=== PATIENT | female | born 1995 | race Caucasian/White ===

== ENCOUNTER 2017-09-19 13:29 | Emergency (ER) | payer MEDICAID ==
[2017-09-19] MEDS ORDERED: oxyCOD/ACETAMIN 5 MG/325 MG TABLET PO STA (16:23)
[2017-09-19] MEDS ORDERED: LIDOCAINE PATCH 5% TOP STA (16:23)
[2017-09-19] MEDS ORDERED: oxyCOD/ACETAMIN 5 MG/325 MG TABLET PO ONE (16:33)
[2017-09-19] MEDS ORDERED: LIDOCAINE PATCH 5% TOP ONE (16:33)
--- NOTE | 2017-09-19 17:10 | ED Physician Documentation ---
History of Present Illness - Stated complaint Stated Complaint: BACK PX - Chief complaint Chief Complaint: General - Additonal information Additional information: hx from pt 22 y/o f denies preg pt was sick and coughing very hard developed severe R posterior chest pain worse with moving palp and breathing no rash no abd pain no flank pain no urinary sx no leg pain or swelling, no travel motrin s relief Review of Systems Constitutional: denies: Fever Cardiac: reports: Chest pain / pressure Respiratory: reports: Dyspnea, Cough GI: denies: Abdominal Pain : denies: Now EGA Musculoskeletal: reports: Back pain Endocrine: denies: Easy bruising / bleeding Immunocompromised: denies: Immunocompromised PD PAST MEDICAL HISTORY - Past Medical History Past Medical History: Yes Psych: Depression, Anxiety, Other - Past Surgical History Past Surgical History: No - Present Medications Home Medications: Ambulatory Orders Medication Instructions Recorded Confirmed FLUoxetine [PROzac] 10 mg PO DAILY 08/15/13 11/12/16 ARIPiprazole [Abilify] 10 mg PO DAILY 09/19/17 09/19/17 Ibuprofen [Motrin] 400 mg PO Q6H PRN #20 tablet 09/19/17 Lidocaine Patch 5% [Lidoderm Patch] 1 each TOP DAILY PRN #10 patch 09/19/17 guaiFENesin/CODEINE [Robitussin AC] 5 - 10 ml PO Q6H PRN #120 udc 09/19/17 - Allergies Allergies/Adverse Reactions: Allergies Allergy/AdvReac Type Severity Reaction Status Date / Time Penicillins Allergy Rash Verified 09/19/17 13:42 - Social History Does the pt smoke?: Yes Smoking Status: Current every day smoker Does the pt drink ETOH?: Yes Does the pt have substance abuse?: No - Immunizations Immunizations are current?: Yes - POLST Patient has POLST: No PD ED PE NORMAL - Vitals Vital signs reviewed: Yes - General General: Alert and oriented X 3 - Neck Neck: Supple, no meningeal sign - Cardiac Cardiac: RRR - Respiratory Respiratory: No respiratory distress, Clear bilaterally, Other (limited 2/2 pain but puma BS, no rash, no crepitus) - Abdomen Abdomen: Soft, Non tender - Derm Derm: Normal color - Extremities Extremities: No deformity, No edema, No calf tenderness / cord - Neuro Neuro: Alert and oriented X 3, No motor deficit, No sensory deficit Results - Vitals Vitals: Vital Signs - 24 hr 09/19/17 13:38 Temperature 36.2 C L Heart Rate 84 Respiratory 16 Rate Blood Pressure 119/72 O2 Saturation 100 Oxygen O2 Source Room air - Rads (name of study) CXR Radiology: See rad report (neg) PD MEDICAL DECISION MAKING - ED course ED course: PERC neg CXR neg likely pleurisy from recent URI will dc Departure - Departure Disposition: 01 Home, Self Care Clinical Impression: Pleurisy Condition: Good Instructions: ED Chest Pain Pleurisy Prescriptions: guaiFENesin/CODEINE [Robitussin AC] 5 - 10 ml PO Q6H PRN #120 udc PRN Reason: Cough Ibuprofen [Motrin] 400 mg PO Q6H PRN #20 tablet PRN Reason: Pain Lidocaine Patch 5% [Lidoderm Patch] 1 each TOP DAILY PRN #10 patch PRN Reason: Pain Comments: The xray was fine - no collapsed lung or pneumonia. Your exam and history do not suggest a blood clot in your lung You likely have pleurisy which is inflammation of your lungs due to your recent respiratory infection I have prescribed medications to ease your symptoms Please follow up with your PMD for a recheck later this week Return if worse Forms: Activity restrictions
--- NOTE | 2017-09-19 17:13 | XRAY Preliminary Report ---
Exam: XR CHEST 2 VIEW PA/LAT IMPRESSION: No acute intrathoracic plain film abnormality. [facility] SITE ID: [id number]
--- NOTE | 2017-09-19 17:16 | XRAY Report ---
EXAM: CHEST RADIOGRAPHY EXAM DATE: 09/19/2017 04:46 PM. CLINICAL HISTORY: Pleuritic chest pain. COMPARISON: None. TECHNIQUE: 2 views. FINDINGS: Lungs/Pleura: No focal opacities evident. No pleural effusion. No pneumothorax. Normal volumes. Mediastinum: Heart and mediastinal contours are unremarkable. Other: None. IMPRESSION: No acute intrathoracic plain film abnormality. [facility] Referring Provider Line: [phone] SITE ID: [id number]
[2017-09-19 17:30] VITALS: BP 117/81
== END 2017-09-19 17:58 | disposition home or self-care (01) ==
LOC: ED 13:29
DX: R09.1 Pleurisy (principal); F17.200 Nicotine dependence, unspecified, uncomplicated
CPT/HCPCS: 71020; 99283; A9270

== ENCOUNTER 2017-10-30 12:42 | Outpatient (CLI) | payer MEDICAID | END 2017-10-30 12:43 | disposition critical access hospital (66) | LOC: EMS 12:42 | PROVIDERS: ATTEND Surgery | DX: R11.2 Nausea with vomiting, unspecified (principal) | CPT/HCPCS: A0425; A0429 ==

== ENCOUNTER 2017-10-30 13:07 | Emergency (ER) | payer MEDICAID ==
[2017-10-30] MEDS ORDERED: SODIUM CHLORIDE 0.9% 1,000 ML IV ONE (13:08)
[2017-10-30] MEDS ORDERED: PANTOPRAZOLE 40 MG VIAL IVP STA (13:08)
[2017-10-30] MEDS ORDERED: ONDANSETRON 4 MG/2 ML VIAL IVP STA (13:08)
--- NOTE | 2017-10-30 13:11 | ED Physician Documentation ---
PD HPI ABD PAIN - Stated complaint Stated Complaint: N/V/ANXIETY - Chief complaint Chief Complaint: Abd Pain - History obtained from History obtained from: Patient - History of Present Illness Timing - onset: Other (Boyfriend cheated on her 5 days ago. At that time she started to lose her appetite and she really was not eating for a couple of days , only drinking Dr. Pepper. She regained her appetite 3 days ago, but since then every time she eats she vomits. There is some epigastric burning with this and also a headache. She has been unable to keep down her medications including fluoxetine and aripiprazole.) Review of Systems Constitutional: reports: Fatigue. denies: Fever, Chills Nose: denies: Rhinorrhea / runny nose, Congestion Cardiac: denies: Chest pain / pressure, Palpitations Respiratory: denies: Dyspnea GI: reports: Nausea, Vomiting, Diarrhea (Yesterday, gone). denies: Hematemesis , Bloody / black stool PD PAST MEDICAL HISTORY - Past Medical History Psych: Depression, Anxiety, Other - Past Surgical History Past Surgical History: No - Present Medications Home Medications: Ambulatory Orders Medication Instructions Recorded Confirmed FLUoxetine [PROzac] 10 mg PO DAILY 08/15/13 10/30/17 ARIPiprazole [Abilify] 10 mg PO DAILY 09/19/17 10/30/17 Famotidine [Pepcid] 20 mg PO BID #10 tablet 10/30/17 Lorazepam [Ativan] 1 mg PO TID PRN #10 tablet 10/30/17 Omeprazole [PriLOSEC] 20 mg PO DAILY #14 capsule 10/30/17 Ondansetron HCl [Zofran] 4 mg PO Q6H PRN #10 tablet 10/30/17 - Allergies Allergies/Adverse Reactions: Allergies Allergy/AdvReac Type Severity Reaction Status Date / Time Penicillins Allergy Rash Verified 10/30/17 13:06 - Social History Does the pt smoke?: Yes Smoking Status: Current every day smoker Does the pt drink ETOH?: Yes Does the pt have substance abuse?: No - Immunizations Immunizations are current?: Yes - POLST Patient has POLST: No PD ED PE NORMAL - Vitals Vital signs reviewed: Yes - General General: Alert and oriented X 3, No acute distress - Neck Neck: Supple, no meningeal sign, No bony TTP - Cardiac Cardiac: RRR, No murmur - Respiratory Respiratory: No respiratory distress, Clear bilaterally - Abdomen Abdomen: Normal bowel sounds, Soft, Non tender - Neuro Neuro: Alert and oriented X 3, Normal speech - Psych Psych: Normal mood, Normal affect Results - Vitals Vitals: Vital Signs - 24 hr 10/30/17 10/30/17 13:03 14:25 Temperature 36.8 C 36.9 C Heart Rate 80 65 Respiratory 15 15 Rate Blood Pressure 127/85 H 137/84 H O2 Saturation 98 100 Oxygen O2 Source Room air - Labs Labs: Laboratory Tests 10/30/17 10/30/17 13:25 13:25 Sodium 138 Potassium 3.7 Chloride 103 Carbon Dioxide 22 Anion Gap 13.0 BUN 6 Creatinine 0.7 Estimated GFR (MDRD) 104 Glucose 97 Calcium 9.5 Total Bilirubin 0.3 AST 18 ALT 18 Alkaline Phosphatase 99 Total Protein 7.4 Albumin 3.7 Globulin 3.7 Albumin/Globulin Ratio 1.0 Lipase 21 L Serum HCG, Qual NEGATIVE H. pylori IgG Antibody Negative PD MEDICAL DECISION MAKING - ED course ED course: She has what seems to be most likely anxiety related nausea and vomiting. Could also be an episode of gastritis, less likely would be enteritis. She is feeling much better after Zofran and a GI cocktail and some IV Protonix. Still anxious so this was followed by IV Ativan and passed an oral challenge. Remains nontender on reevaluation prior to discharge. Departure - Departure Disposition: 01 Home, Self Care Clinical Impression: Gastritis Qualifiers: Gastritis type: superficial Chronicity: acute Gastritis bleeding: without bleeding Qualified Code(s): K29.00 - Acute gastritis without bleeding Condition: Good Record reviewed to determine appropriate education?: Yes Instructions: ED Gastritis Prescriptions: Famotidine [Pepcid] 20 mg PO BID #10 tablet Lorazepam [Ativan] 1 mg PO TID PRN #10 tablet PRN Reason: Anxiety Omeprazole [PriLOSEC] 20 mg PO DAILY #14 capsule Ondansetron HCl [Zofran] 4 mg PO Q6H PRN #10 tablet PRN Reason: Nausea / Vomiting Comments: Call your doctor to arrange a follow-up appointment, make the next available appointment. In the interim, return anytime if worse or if new symptoms develop. Your blood pressure was elevated today on check into the emergency department. This does not mean that you have hypertension, it is a common phenomenon to come to the emergency department and have elevated blood pressure. I recommend that you see your primary care physician within the week to have it rechecked when you are feeling better.
[2017-10-30] MEDS ORDERED: ONDANSETRON 4 MG/2 ML VIAL ONE (13:19)
[2017-10-30] MEDS ORDERED: PANTOPRAZOLE 40 MG VIAL ONE (13:19)
[2017-10-30 13:58] LABS: H. PYLORI IGG ANTIBODY Negative (Negative); HPYLORI NEG QC Negative (Negative); HPYLORI POS QC POSITIVE (Positive)
[2017-10-30 14:09] LABS: BILIRUBIN,TOTAL 0.3 mg/dL (0.2-1.0); BUN - BLOOD UREA NITROGEN 6 mg/dL (6-20); CALCIUM 9.5 mg/dL (8.5-10.3); CARBON DIOXIDE - CO2 22 mmol/L (21-32); CHLORIDE 103 mmol/L (101-111); CREATININE 0.7 mg/dL (0.4-1.0); GFR - MDRD 104 (>89); GLUCOSE 97 mg/dL (70-100); LIPASE 21 U/L (22-51); POTASSIUM 3.7 mmol/L (3.5-5.0); SODIUM 138 mmol/L (135-145); TOTAL PROTEIN 7.4 g/dL (6.7-8.2)
[2017-10-30] MEDS ORDERED: MAG HYDROX/AL HYDROX/SIMETH 30 ML UDC PO STA (14:13)
[2017-10-30] MEDS ORDERED: LIDOCAINE VISCOUS 2% 15 ML UDC MM STA (14:13)
[2017-10-30] MEDS ORDERED: LIDOCAINE VISCOUS 2% 15 ML UDC MM ONE (14:26)
[2017-10-30] MEDS ORDERED: MAG HYDROX/AL HYDROX/SIMETH 30 ML UDC ONE (14:26)
[2017-10-30] MEDS ORDERED: LORazepam 2 MG/ML VIAL IVP STA (14:45)
[2017-10-30 15:08] VITALS: BP 141/77
[2017-10-30] MEDS ORDERED: LORazepam 2 MG/ML VIAL ONE (15:15)
== END 2017-10-30 15:29 | disposition home or self-care (01) ==
LOC: ED 13:07
DX: K29.00 Acute gastritis without bleeding (principal); R03.0 Elevated blood-pressure reading, without diagnosis of hypertension; F17.200 Nicotine dependence, unspecified, uncomplicated
CPT/HCPCS: 36415; 80053; 83690; 84703; 87339; 96361; 96374; 96375; 99283; 99284; A9270; J2060

== ENCOUNTER 2017-11-17 21:18 | Emergency (ER) | payer MEDICAID ==
[2017-11-17 21:38] LABS: MUDS CUTOFF CONCENTRATIONS CUTOFF CONC BELOW:
[2017-11-17 21:47] LABS: BILIRUBIN,URINE NEGATIVE (NEGATIVE); GLUCOSE, URINE (UA) NEGATIVE (NEGATIVE); KETONES,URINE (UA) NEGATIVE (NEGATIVE); LEUKOCYTE ESTERASE, URINE NEGATIVE (NEGATIVE); NITRITE,URINE NEGATIVE (NEGATIVE); OCCULT BLOOD,URINE NEGATIVE (NEGATIVE); PROTEIN,URINE NEGATIVE (NEGATIVE); UROBILINOGEN,URINE 0.2 (NORMAL) E.U./dL (NORMAL)
[2017-11-17 21:51] LABS: CLARITY,URINE CLEAR (CLEAR); HCG UR QUAL NEGATIVE
[2017-11-17 21:52] LABS: AMPHETAMINE SCREEN,URINE NEGATIVE (NEGATIVE); BENZODIAZEPINES SCREEN, URINE NEGATIVE (NEGATIVE); COCAINE SCREEN URINE NEGATIVE (NEGATIVE); METHADONE SCREEN, URINE NEGATIVE (NEGATIVE); METHAMPHETAMINES SCREEN, URINE NEGATIVE (NEGATIVE); OPIATE SCREEN, URINE NEGATIVE (NEGATIVE); OXYCODONE SCREEN, URINE NEGATIVE (NEGATIVE); PROPOXYPHENE SCREEN, URINE NEGATIVE (NEGATIVE); TRICYCLIC ANTIDEPRESSANT,URINE NEGATIVE (NEGATIVE)
[2017-11-17 21:56] LABS: BASOPHILS # (AUTO) 0.1 10^3/uL (0.0-0.1); BASOPHILS % (AUTO) 0.4 %; EOSINOPHILS % (AUTO) 0.1 %; HGB - HEMOGLOBIN 12.6 g/dL (12.0-16.0); LYMPHOCYTES % (AUTO) 23.8 %; MEAN CORPUSCULAR HEMOGLOBIN 29.6 pg (27.0-31.0); MEAN CORPUSCULAR HGB CONC 33.2 g/dL (32.0-36.0); MEAN CORPUSCULAR VOLUME 89.2 fL (81.0-99.0); MEAN PLATELET VOLUME 7.2 fL (7.9-10.8); MONOCYTES # (AUTO) 0.9 10^3/uL (0.0-1.0); MONOCYTES % (AUTO) 6.7 %; NEUTROPHILS # (AUTO) 8.8 10^3/uL (1.5-6.6); PLT - PLATELET COUNT 288 10^3/uL (130-450); RED BLOOD COUNT 4.24 10^6/uL (4.20-5.40); RED CELL DISTRIBUTION WIDTH 13.4 % (12.0-15.0); WHITE BLOOD COUNT 12.7 x10^3/uL (4.8-10.8)
[2017-11-17 22:09] LABS: ALBUMIN 3.9 g/dL (3.2-5.5); ALKALINE PHOSPHATASE 94 IU/L (42-121); ALT ALANINE AMINOTRANSFERASE 19 IU/L (10-60); AST ASPARTATE AMINOTRANSFERASE 25 IU/L (10-42); BILIRUBIN,TOTAL 0.4 mg/dL (0.2-1.0); BUN - BLOOD UREA NITROGEN 5 mg/dL (6-20); CALCIUM 9.3 mg/dL (8.5-10.3); CARBON DIOXIDE - CO2 25 mmol/L (21-32); CHLORIDE 98 mmol/L (101-111); CREATININE 0.7 mg/dL (0.4-1.0); GFR - MDRD 104 (>89); GLUCOSE 112 mg/dL (70-100); LIPASE 17 U/L (22-51); SALICYLATE < 6.0 mg/dL; SODIUM 135 mmol/L (135-145); TOTAL PROTEIN 7.8 g/dL (6.7-8.2)
[2017-11-17 22:30] LABS: ACETAMINOPHEN < 10 ug/mL (10-30)
--- NOTE | 2017-11-17 22:38 | ED Physician Documentation ---
PD HPI MHE - Stated complaint Stated Complaint: MHE - Chief complaint Chief Complaint: MHE - History obtained from History obtained from: Patient, Family - History of Present Illness Primary symptom: Suicidal ideation Timing - onset: Today Contributing factors: Sig other, Off meds Similar symptoms before: Work up / diagnostics, Treatment Recently seen: Not recently seen - Additional information Additional information: Patient is a 22 year old female with a history of anxiety, depression and schizoaffective disorder who is presenting to the emergency department for suicidal ideation. Patient states that she and her boyfriend have broken up about a week ago. patient came to the emergency department at that time for gastritis. patient states that tonight it just got to be too much and she was going to drive [place]. Patient states that she has not been taking her medications for about a month. Review of Systems Constitutional: denies: Fever, Chills Eyes: reports: Reviewed and negative Ears: reports: Reviewed and negative Nose: reports: Reviewed and negative Throat: reports: Reviewed and negative Cardiac: denies: Chest pain / pressure, Palpitations Respiratory: denies: Dyspnea, Cough, Wheezing GI: denies: Nausea, Vomiting : reports: Reviewed and negative Skin: denies: Laceration (s) Musculoskeletal: reports: Reviewed and negative Neurologic: reports: Reviewed and negative Psychiatric: reports: Depressed, Suicidal, Anxiety. denies: Homicidal, Hallucinations, Delusions PD PAST MEDICAL HISTORY - Past Medical History Past Medical History: Yes Psych: Depression, Anxiety, Other Other Past Medical History: Schizoaffective - Past Surgical History Past Surgical History: No - Allergies Allergies/Adverse Reactions: Allergies Allergy/AdvReac Type Severity Reaction Status Date / Time Penicillins Allergy Rash Verified 10/30/17 13:06 - Social History Does the pt smoke?: Yes Smoking Status: Current every day smoker Does the pt drink ETOH?: Yes Does the pt have substance abuse?: No - Immunizations Immunizations are current?: Yes - POLST Patient has POLST: No PD ED PE NORMAL - Vitals Vital signs reviewed: Yes - General General: Alert and oriented X 3 - HEENT HEENT: Atraumatic, Moist mucous membranes, Dentition benign - Neck Neck: Supple, no meningeal sign - Cardiac Cardiac: RRR, No murmur - Respiratory Respiratory: No respiratory distress - Abdomen Abdomen: Non distended - Derm Derm: Normal color, Warm and dry - Extremities Extremities: No deformity - Neuro Neuro: Alert and oriented X 3, No motor deficit, No sensory deficit, Normal speech Eye Opening: Spontaneous Motor: Obeys Commands Verbal: Oriented GCS Score: 15 PD ED PE EXPANDED - Psych Psych: Depressed, Suicidal, Tearful Results - Vitals Vitals: Vital Signs - 24 hr 11/17/17 21:22 Temperature 36.7 C Heart Rate 84 Respiratory 18 Rate Blood Pressure 128/78 O2 Saturation 100 Oxygen O2 Source Room air - Labs Labs: Laboratory Tests 11/17/17 11/17/17 11/17/17 21:35 21:35 21:48 WBC 12.7 H RBC 4.24 Hgb 12.6 Hct 37.8 MCV 89.2 MCH 29.6 MCHC 33.2 RDW 13.4 Plt Count 288 MPV 7.2 L Neut # 8.8 H Lymph # 3.0 [place] # 0.9 Eos # 0.0 Baso # 0.1 Absolute Nucleated RBC 0.00 Nucleated RBC % 0.0 Sodium Potassium Chloride Carbon Dioxide Anion Gap BUN Creatinine Estimated GFR (MDRD) Glucose Calcium Total Bilirubin AST ALT Alkaline Phosphatase Total Protein Albumin Globulin Albumin/Globulin Ratio Lipase TSH Urine Color YELLOW Urine Clarity CLEAR Urine pH 6.0 Ur Specific [place] 1.020 Urine Protein NEGATIVE Urine Glucose (UA) NEGATIVE Urine Ketones NEGATIVE Urine Occult Blood NEGATIVE Urine Nitrite NEGATIVE Urine Bilirubin NEGATIVE Urine Urobilinogen 0.2 (NORMAL) Ur Leukocyte Esterase NEGATIVE Ur Microscopic Review NOT INDICATED Urine Culture Comments NOT INDICATED Urine HCG, Qual NEGATIVE Salicylates Urine Opiates Screen NEGATIVE Ur Oxycodone Screen NEGATIVE Urine Methadone Screen NEGATIVE Ur Propoxyphene Screen NEGATIVE Acetaminophen Ur Barbiturates Screen NEGATIVE Ur Tricyclics Screen NEGATIVE Ur Phencyclidine Scrn NEGATIVE Ur Amphetamine Screen NEGATIVE U Methamphetamines Scrn NEGATIVE U Benzodiazepines Scrn NEGATIVE Urine Cocaine Screen NEGATIVE U Cannabinoids Screen POSITIVE H Ethyl Alcohol 11/17/17 11/17/17 21:48 21:48 WBC RBC Hgb Hct MCV MCH MCHC RDW Plt Count MPV Neut # Lymph # [place] # Eos # Baso # Absolute Nucleated RBC Nucleated RBC % Sodium 135 Potassium 3.2 L Chloride 98 L Carbon Dioxide 25 Anion Gap 12.0 BUN 5 L Creatinine 0.7 Estimated GFR (MDRD) 104 Glucose 112 H Calcium 9.3 Total Bilirubin 0.4 AST 25 ALT 19 Alkaline Phosphatase 94 Total Protein 7.8 Albumin 3.9 Globulin 3.9 Albumin/Globulin Ratio 1.0 Lipase 17 L TSH 5.40 Urine Color Urine Clarity Urine pH Ur Specific [place] Urine Protein Urine Glucose (UA) Urine Ketones Urine Occult Blood Urine Nitrite Urine Bilirubin Urine Urobilinogen Ur Leukocyte Esterase Ur Microscopic Review Urine Culture Comments Urine HCG, Qual Salicylates < 6.0 Urine Opiates Screen Ur Oxycodone Screen Urine Methadone Screen Ur Propoxyphene Screen Acetaminophen < 10 L Ur Barbiturates Screen Ur Tricyclics Screen Ur Phencyclidine Scrn Ur Amphetamine Screen U Methamphetamines Scrn U Benzodiazepines Scrn Urine Cocaine Screen U Cannabinoids Screen Ethyl Alcohol < 5.0 PD MEDICAL DECISION MAKING - ED course Complexity details: reviewed old records, reviewed results, re-evaluated patient , considered differential, d/w patient ED course: Patient was seen and examined at bedside. Patient was tearful but awake, alert and oriented. patient's labs were drawn and urine was collected. Patient was treated with pepcid, maalox and ativan. Patient was medically clear but voluntary so patient was signed over to the day team pending social work evaluation.
[2017-11-17] MEDS ORDERED: POTASSIUM CHLORIDE 20 MEQ TABLET PO STA (22:39)
[2017-11-17] MEDS ORDERED: FAMOTIDINE 20 MG TABLET PO STA (22:43)
[2017-11-17] MEDS ORDERED: LORazepam 0.5 MG TABLET PO STA (22:43)
[2017-11-17] MEDS ORDERED: MAG HYDROX/AL HYDROX/SIMETH 30 ML UDC PO STA (22:43)
--- NOTE | 2017-11-18 08:20 | ED Physician Documentation ---
History of Present Illness - Stated complaint Stated Complaint: MHE - Chief complaint Chief Complaint: MHE PD PAST MEDICAL HISTORY - Past Medical History Past Medical History: Yes Psych: Depression, Anxiety, Other Other Past Medical History: Schizoaffective - Past Surgical History Past Surgical History: No - Allergies Allergies/Adverse Reactions: Allergies Allergy/AdvReac Type Severity Reaction Status Date / Time Penicillins Allergy Rash Verified 10/30/17 13:06 - Social History Does the pt smoke?: Yes Smoking Status: Current every day smoker Does the pt drink ETOH?: Yes Does the pt have substance abuse?: No - Immunizations Immunizations are current?: Yes - POLST Patient has POLST: No Results - Vitals Vitals: Vital Signs - 24 hr 11/17/17 11/18/17 21:22 07:45 Temperature 36.7 C 97.1 C H Heart Rate 84 70 Respiratory 18 17 Rate Blood Pressure 128/78 128/64 O2 Saturation 100 100 Oxygen O2 Source Room air - Labs Labs: Laboratory Tests 11/17/17 11/17/17 11/17/17 21:35 21:35 21:48 WBC 12.7 H RBC 4.24 Hgb 12.6 Hct 37.8 MCV 89.2 MCH 29.6 MCHC 33.2 RDW 13.4 Plt Count 288 MPV 7.2 L Neut # 8.8 H Lymph # 3.0 [place] # 0.9 Eos # 0.0 Baso # 0.1 Absolute Nucleated RBC 0.00 Nucleated RBC % 0.0 Sodium Potassium Chloride Carbon Dioxide Anion Gap BUN Creatinine Estimated GFR (MDRD) Glucose Calcium Total Bilirubin AST ALT Alkaline Phosphatase Total Protein Albumin Globulin Albumin/Globulin Ratio Lipase TSH Urine Color YELLOW Urine Clarity CLEAR Urine pH 6.0 Ur Specific [place] 1.020 Urine Protein NEGATIVE Urine Glucose (UA) NEGATIVE Urine Ketones NEGATIVE Urine Occult Blood NEGATIVE Urine Nitrite NEGATIVE Urine Bilirubin NEGATIVE Urine Urobilinogen 0.2 (NORMAL) Ur Leukocyte Esterase NEGATIVE Ur Microscopic Review NOT INDICATED Urine Culture Comments NOT INDICATED Urine HCG, Qual NEGATIVE Salicylates Urine Opiates Screen NEGATIVE Ur Oxycodone Screen NEGATIVE Urine Methadone Screen NEGATIVE Ur Propoxyphene Screen NEGATIVE Acetaminophen Ur Barbiturates Screen NEGATIVE Ur Tricyclics Screen NEGATIVE Ur Phencyclidine Scrn NEGATIVE Ur Amphetamine Screen NEGATIVE U Methamphetamines Scrn NEGATIVE U Benzodiazepines Scrn NEGATIVE Urine Cocaine Screen NEGATIVE U Cannabinoids Screen POSITIVE H Ethyl Alcohol 12/11/17/17 11/18/17 21:48 21:48 07:20 WBC RBC Hgb Hct MCV MCH MCHC RDW Plt Count MPV Neut # Lymph # [place] # Eos # Baso # Absolute Nucleated RBC Nucleated RBC % Sodium 135 Potassium 3.2 L 3.9 Chloride 98 L Carbon Dioxide 25 Anion Gap 12.0 BUN 5 L Creatinine 0.7 Estimated GFR (MDRD) 104 Glucose 112 H Calcium 9.3 Total Bilirubin 0.4 AST 25 ALT 19 Alkaline Phosphatase 94 Total Protein 7.8 Albumin 3.9 Globulin 3.9 Albumin/Globulin Ratio 1.0 Lipase 17 L TSH 5.40 Urine Color Urine Clarity Urine pH Ur Specific [place] Urine Protein Urine Glucose (UA) Urine Ketones Urine Occult Blood Urine Nitrite Urine Bilirubin Urine Urobilinogen Ur Leukocyte Esterase Ur Microscopic Review Urine Culture Comments Urine HCG, Qual Salicylates < 6.0 Urine Opiates Screen Ur Oxycodone Screen Urine Methadone Screen Ur Propoxyphene Screen Acetaminophen < 10 L Ur Barbiturates Screen Ur Tricyclics Screen Ur Phencyclidine Scrn Ur Amphetamine Screen U Methamphetamines Scrn U Benzodiazepines Scrn Urine Cocaine Screen U Cannabinoids Screen Ethyl Alcohol < 5.0 PD MEDICAL DECISION MAKING - ED course ED course: assumed care 7 AM 22 f to ED with depression and SI (plan to jump of bridge) 2/2 boyfriend cheating on her and subsequent break up medically clear and awaiting DERRELL ga went to see pt at 730 and she was asleep went to see pt at 8 Am and she is awake and sitting up, she states she is still actively suicidal, also admits to homicidal ideations towards her boyfriends new girlfriend but decline to give me that persons name "why would I? So you can contact her?" pt has been to inpt mental health before and feels she would benefit from inpt again pt also req STD testing and I advised we could add on GC chlamydia to her urine sample already collected and that if she desired HIV or hepatitis testing that would best addressed through public health and.or PMD SW saw pt - pt denies homicidal ideations for SW, still not able to get a name to contact to te, pt be admitted to inpt so no imminent danger, defer to inpt mental health to reassess risk and notify if/as appropriate DERRELL saw pt and able to get her accepted at [facility] forms completed [facility] to transport at 1800 Departure - Departure Disposition: 65 Psych Hosp/Unit DC/Xfer Clinical Impression: Suicidal ideation, Homicidal ideation Depression Qualifiers: Depression Type: unspecified Qualified Code(s): F32.9 - Major depressive disorder, single episode, unspecified
[2017-11-18] MEDS ORDERED: NICOTINE 7 MG PATCH TOP STA (18:08)
[2017-11-18 18:23] VITALS: BP 138/66
[2017-11-18] MEDS ORDERED: NICOTINE 7 MG PATCH TOP SCH (19:00)
== END 2017-11-18 19:28 ==
LOC: ED 21:18
DX: R45.851 Suicidal ideations (principal); F32.9 Major depressive disorder, single episode, unspecified; F17.200 Nicotine dependence, unspecified, uncomplicated
CPT/HCPCS: 36415; 80053; 80306; 80307; 80320; 80329; 81003; 81025; 83690; 84132; 84443; 85025; 87491; 87591; 99284; 99285; A9270; 81001; 87086

== ENCOUNTER 2018-02-02 07:59 | Outpatient (CLI) | payer MEDICAID | END 2018-02-02 08:00 | disposition critical access hospital (66) | LOC: EMS 07:59 | PROVIDERS: ATTEND Surgery | DX: M54.9 Dorsalgia, unspecified (principal) | CPT/HCPCS: A0425; A0429 ==

== ENCOUNTER 2018-02-02 08:27 | Emergency (ER) | payer MEDICAID ==
--- NOTE | 2018-02-02 09:32 | ED Physician Documentation ---
PD HPI BACK PAIN - Stated complaint Stated Complaint: BACK PX - Chief complaint Chief Complaint: Back Pain - History obtained from History obtained from: Patient - History of Present Illness Timing - onset: How many days ago (3) Timing - duration: Days (3) Timing - details: Gradual onset, Still present Location: Upper, Left Quality: Pain, Spasm, Sharp, Similar to prior episodes Associated symptoms: No: Fever, Weakness, Numbness, Incontinent of urine, Unable to urinate, Hematuria, Incontinent of stool Improves with: Rest, Position Worsened by: Movement, Twisting, Palpation Similar symptoms before: Diagnosis (broken back) Recently seen: Not recently seen - Additional information Additional information: 23-year-old female has had an injury to her back about 2 years ago and she continues to have pain in her back and over the last 2 days her pain is gotten worse. She has had some vomiting recently and she has had a cough and congestion. Review of Systems Constitutional: denies: Fever Eyes: denies: Decreased vision Ears: denies: Ear pain Nose: reports: Rhinorrhea / runny nose, Congestion Throat: denies: Sore throat Cardiac: reports: Chest pain / pressure. denies: Palpitations Respiratory: reports: Cough. denies: Dyspnea GI: reports: Nausea, Vomiting. denies: Abdominal Pain : denies: Dysuria, Frequency PD PAST MEDICAL HISTORY - Past Medical History Psych: Depression, Anxiety, Other - Past Surgical History Past Surgical History: No - Present Medications Home Medications: Ambulatory Orders Medication Instructions Recorded Confirmed Cyclobenzaprine [Flexeril] 10 mg PO TID PRN #20 tablet 02/02/18 HYDROcod/ACETAM 5/325 [[place] 5/325] 1 - 2 ea PO Q6H PRN #15 tablet 02/02/18 - Allergies Allergies/Adverse Reactions: Allergies Allergy/AdvReac Type Severity Reaction Status Date / Time Penicillins Allergy Rash Verified 02/02/18 08:34 - Social History Does the pt smoke?: Yes Smoking Status: Current every day smoker Does the pt drink ETOH?: Yes Does the pt have substance abuse?: No - Immunizations Immunizations are current?: Yes - POLST Patient has POLST: No PD ED PE NORMAL - Vitals Vital signs reviewed: Yes (normal ) - General General: Alert and oriented X 3, Well developed/nourished, Other (The patient appears to be in pain with ticket printer tone and flattened affect) - HEENT HEENT: Atraumatic, PERRL, EOMI, Ears normal, Other (Dry mucous membranes) - Neck Neck: Supple, no meningeal sign, No bony TTP - Cardiac Cardiac: RRR, No murmur - Respiratory Respiratory: No respiratory distress, Clear bilaterally, Other (There is point tenderness to the left posterior chest wall over the paraspinous muscles and over the rhomboid muscles on the left side) - Abdomen Abdomen: Soft, Non tender - Back Back: No CVA TTP - Derm Derm: Normal color, Warm and dry, No rash - Extremities Extremities: No deformity, No edema - Neuro Neuro: Alert and oriented X 3, No motor deficit, No sensory deficit, Normal speech Eye Opening: Spontaneous Motor: Obeys Commands Verbal: Oriented GCS Score: 15 - Psych Psych: Normal mood, Normal affect Results - Vitals Vitals: Vital Signs - 24 hr 02/02/18 08:30 Temperature 37.0 C Heart Rate 84 Respiratory 18 Rate Blood Pressure 112/62 O2 Saturation 99 Oxygen O2 Source Room air - Rads (name of study) 2 veiw chest Radiology: Prelim report reviewed (Impression: Clear lungs. No acute findings.) , EMP read indepedently, See rad report PD MEDICAL DECISION MAKING - ED course Complexity details: reviewed results, re-evaluated patient, considered differential, d/w patient ED course: 23-year-old female with chronic back pain has developed an increase in her pain in the left rhomboid muscle area she is administered dexamethasone and Toradol with some relief of her pain. Departure - Departure Disposition: 01 Home, Self Care Clinical Impression: Pain of rhomboid muscle Condition: Stable Instructions: ED Spasm Back No Trauma Follow-Up: [facility] [Provider Group] Prescriptions: Cyclobenzaprine [Flexeril] 10 mg PO TID PRN #20 tablet PRN Reason: Spasms HYDROcod/ACETAM 5/325 [[place] 5/325] 1 - 2 ea PO Q6H PRN #15 tablet PRN Reason: Pain
--- NOTE | 2018-02-02 10:04 | XRAY Report ---
EXAM: CHEST RADIOGRAPHY EXAM DATE: 02/02/2018 09:50 AM. CLINICAL HISTORY: Left chest pain cough. COMPARISON: None. TECHNIQUE: 2 views. FINDINGS: Lungs/Pleura: No focal opacities evident. No pleural effusion. No pneumothorax. Normal volumes. Mediastinum: Heart and mediastinal contours are unremarkable. Other: Mild superior endplate deformity of T12. Midthoracic dextroscoliosis. IMPRESSION: Clear lungs. No acute findings. [facility] Referring Provider Line: [phone] SITE ID: [id number]
[2018-02-02 10:23] VITALS: BP 133/82
[2018-02-02] MEDS ORDERED: CYCLOBENZAPRINE 10 MG TABLET PO STA (10:30)
== END 2018-02-02 10:34 | disposition home or self-care (01) ==
LOC: EDUNIT# → ED 08:27
DX: M79.1 Myalgia (principal); F17.200 Nicotine dependence, unspecified, uncomplicated; M54.9 Dorsalgia, unspecified; G89.29 Other chronic pain; Z87.828 Personal history of other (healed) physical injury and trauma
CPT/HCPCS: 71046; 99283; A9270

== ENCOUNTER 2018-03-07 03:18 | Outpatient (CLI) | payer MEDICAID | END 2018-03-07 03:19 | disposition critical access hospital (66) | LOC: EMS 03:18 | PROVIDERS: ATTEND Surgery | DX: R46.89 Other symptoms and signs involving appearance and behavior (principal) | CPT/HCPCS: A0425; A0429 ==

== ENCOUNTER 2018-03-07 03:39 | Emergency (ER) | payer MEDICAID ==
--- NOTE | 2018-03-07 03:51 | ED Physician Documentation ---
PD HPI MHE - Stated complaint Stated Complaint: PANIC ATTACK - History obtained from History obtained from: Patient, EMS - History of Present Illness Primary symptom: Psychosis, Off meds Timing - onset: How many weeks ago (1) Contributing factors: Off meds Similar symptoms before: Diagnosis (schizoaffective disorder) Recently seen: Admitted (In October of 2017.) - Additional information Additional information: 23 y/o female with a history of schizoaffective disorder was admitted to psych facility in October of 2017 after a break up with her boyfriend left her suicidal and homicidal. She improved with hospitalization and was discharged on medication. She lived with her mother when she got out and then she has been living in a house in [place] and she stopped taking her medications. She has been evicted from her house and will have to move by the end of the month. She does not have a room mate now and had to give her dog away because her landlord would not allow it. She reports that she wants to get back on her medications and she does not know what they are. She is having trouble with hearing voices and she denies command hallucinations. She denies SI or HI today. She does indicate she has not slept in 4 days. Review of Systems Constitutional: denies: Fever, Chills, Myalgias Eyes: denies: Decreased vision Ears: denies: Ear pain Nose: denies: Rhinorrhea / runny nose, Congestion Throat: denies: Sore throat Cardiac: denies: Chest pain / pressure, Palpitations Respiratory: denies: Dyspnea, Cough GI: denies: Abdominal Pain, Nausea, Vomiting : denies: Dysuria, Frequency, Hesitancy Skin: denies: Rash Musculoskeletal: denies: Neck pain, Back pain, Extremity pain Neurologic: reports: Headache. denies: Generalized weakness, Focal weakness, Numbness, Difficulty speaking, Syncope, Seizure, Confused, Head injury, LOC Psychiatric: reports: Hallucinations, Delusions, Insomnia. denies: Suicidal, Homicidal PD PAST MEDICAL HISTORY - Past Medical History Psych: Depression, Anxiety, Other - Past Surgical History Past Surgical History: No - Present Medications Home Medications: Ambulatory Orders Medication Instructions Recorded Confirmed Cyclobenzaprine [Flexeril] 10 mg PO TID PRN #20 tablet 02/02/18 HYDROcod/ACETAM 5/325 [[place] 5/325] 1 - 2 ea PO Q6H PRN #15 tablet 02/02/18 Aripiprazole [Abilify] 10 mg PO DAILY #30 tablet 03/07/18 FLUoxetine [PROzac] 20 mg PO DAILY #30 capsule 03/07/18 - Allergies Allergies/Adverse Reactions: Allergies Allergy/AdvReac Type Severity Reaction Status Date / Time Penicillins Allergy Rash Verified 03/07/18 03:57 - Social History Does the pt smoke?: Yes Smoking Status: Current every day smoker Does the pt drink ETOH?: Yes Does the pt have substance abuse?: No - Immunizations Immunizations are current?: Yes - POLST Patient has POLST: No PD ED PE NORMAL - Vitals Vital signs reviewed: Yes (hypertensive ) - General General: No acute distress, Well developed/nourished - HEENT HEENT: Atraumatic, PERRL, EOMI, Ears normal, Moist mucous membranes, Pharynx benign, Dentition benign - Neck Neck: Supple, no meningeal sign, No bony TTP - Cardiac Cardiac: RRR, No murmur - Respiratory Respiratory: No respiratory distress, Clear bilaterally - Abdomen Abdomen: Soft, Non tender - Back Back: No CVA TTP, No spinal TTP - Derm Derm: Normal color, Warm and dry, Other (She does pick at her skin ) - Extremities Extremities: No deformity, No edema - Neuro Neuro: No motor deficit, No sensory deficit Eye Opening: Spontaneous Motor: Obeys Commands Verbal: Oriented GCS Score: 15 - Psych Psych: Normal mood, Normal affect Results - Vitals Vitals: Vital Signs - 24 hr 03/07/18 03/07/18 06:13 10:05 Temperature 36.6 C Heart Rate 74 77 Respiratory 16 15 Rate Blood Pressure 124/86 H 124/74 O2 Saturation 99 100 Oxygen O2 Source Room air - Labs Labs: Laboratory Tests 03/07/18 03/07/18 03/07/18 03:40 03:40 04:05 WBC 12.5 H RBC 4.85 Hgb 14.1 Hct 42.8 MCV 88.2 MCH 29.0 MCHC 32.9 RDW 13.6 Plt Count 318 MPV 7.3 L Neut # 7.1 H Lymph # 3.8 H [place] # 1.3 H Eos # 0.2 Baso # 0.1 Absolute Nucleated RBC 0.01 Nucleated RBC % 0.0 Sodium Potassium Chloride Carbon Dioxide Anion Gap BUN Creatinine Estimated GFR (MDRD) Glucose Calcium Total Bilirubin AST ALT Alkaline Phosphatase Total Protein Albumin Globulin Albumin/Globulin Ratio Lipase Urine Color YELLOW Urine Clarity CLEAR Urine pH 6.0 Ur Specific [place] 1.015 Urine Protein NEGATIVE Urine Glucose (UA) NEGATIVE Urine Ketones NEGATIVE Urine Occult Blood MODERATE H Urine Nitrite NEGATIVE Urine Bilirubin NEGATIVE Urine Urobilinogen 0.2 (NORMAL) Ur Leukocyte Esterase NEGATIVE Urine RBC 6-10 H Urine WBC 0-3 Ur Squamous Epith Cells MANY Squamous H Urine Bacteria Rare Ur Microscopic Review INDICATED Urine Culture Comments NOT INDICATED Urine HCG, Qual NEGATIVE Salicylates Urine Opiates Screen NEGATIVE Ur Oxycodone Screen NEGATIVE Urine Methadone Screen NEGATIVE Ur Propoxyphene Screen NEGATIVE Acetaminophen Ur Barbiturates Screen NEGATIVE Ur Tricyclics Screen NEGATIVE Ur Phencyclidine Scrn NEGATIVE Ur Amphetamine Screen NEGATIVE U Methamphetamines Scrn NEGATIVE U Benzodiazepines Scrn NEGATIVE Urine Cocaine Screen NEGATIVE U Cannabinoids Screen POSITIVE H Ethyl Alcohol 03/07/18 04:05 WBC RBC Hgb Hct MCV MCH MCHC RDW Plt Count MPV Neut # Lymph # [place] # Eos # Baso # Absolute Nucleated RBC Nucleated RBC % Sodium 136 Potassium 3.5 Chloride 100 L Carbon Dioxide 25 Anion Gap 11.0 BUN 6 Creatinine 0.6 Estimated GFR (MDRD) 123 Glucose 96 Calcium 9.7 Total Bilirubin < 0.2 L AST 16 ALT 17 Alkaline Phosphatase 82 Total Protein 8.2 Albumin 4.3 Globulin 3.9 Albumin/Globulin Ratio 1.1 Lipase 12 L Urine Color Urine Clarity Urine pH Ur Specific [place] Urine Protein Urine Glucose (UA) Urine Ketones Urine Occult Blood Urine Nitrite Urine Bilirubin Urine Urobilinogen Ur Leukocyte Esterase Urine RBC Urine WBC Ur Squamous Epith Cells Urine Bacteria Ur Microscopic Review Urine Culture Comments Urine HCG, Qual Salicylates < 6.0 Urine Opiates Screen Ur Oxycodone Screen Urine Methadone Screen Ur Propoxyphene Screen Acetaminophen < 10 L Ur Barbiturates Screen Ur Tricyclics Screen Ur Phencyclidine Scrn Ur Amphetamine Screen U Methamphetamines Scrn U Benzodiazepines Scrn Urine Cocaine Screen U Cannabinoids Screen Ethyl Alcohol < 5.0 PD MEDICAL DECISION MAKING - ED course Complexity details: reviewed old records, reviewed results, re-evaluated patient , considered differential, d/w patient ED course: 23 y/o female requesting evaluation for mental health has not slept in 4 days and has some auditory hallucinations.The patient is medically cleared for evaluation and at shift change her care is turned over the Dr. Kunz. She is evaluated by the pediatric social worker and Dr. Kunz provides her with scripts for 2 of her medications and she is directed back to her primary for follow up. Departure - Departure Disposition: Home, Self Care Clinical Impression: Schizoaffective disorder Qualifiers: Schizoaffective disorder type: depressive Qualified Code(s): F25.1 - Schizoaffective disorder, depressive type Insomnia Qualifiers: Insomnia type: due to other mental disorder Qualified Code(s): F51.05 - Insomnia due to other mental disorder Condition: Stable Instructions: ED Schizo Affective Disorder Follow-Up: Kelly Carvalho ARNP [Provider Admit Priv/Credential] - Prescriptions: Aripiprazole [Abilify] 10 mg PO DAILY #30 tablet FLUoxetine [PROzac] 20 mg PO DAILY #30 capsule Comments: The pediatric social worker feels it is safe for you to go home. I have refilled your Abilify and fluoxetine You need to follow up at [facility] and your PMD - please call to schedule Return if worse Forms: Activity restrictions Discharge Date/Time: 03/07/18 10:20
[2018-03-07 03:54] LABS: MUDS CUTOFF CONCENTRATIONS CUTOFF CONC BELOW:
[2018-03-07 03:56] LABS: BILIRUBIN,URINE NEGATIVE (NEGATIVE); GLUCOSE, URINE (UA) NEGATIVE (NEGATIVE); KETONES,URINE (UA) NEGATIVE (NEGATIVE); LEUKOCYTE ESTERASE, URINE NEGATIVE (NEGATIVE); NITRITE,URINE NEGATIVE (NEGATIVE); OCCULT BLOOD,URINE MODERATE (NEGATIVE); PROTEIN,URINE NEGATIVE (NEGATIVE); UROBILINOGEN,URINE 0.2 (NORMAL) E.U./dL (NORMAL)
[2018-03-07 04:01] LABS: CLARITY,URINE CLEAR (CLEAR); HCG UR QUAL NEGATIVE; SQUAMOUS EPITHELIAL CELL,UR MANY Squamous (<= Few)
[2018-03-07 04:02] LABS: BACTERIA,URINE Rare /HPF (None Seen)
[2018-03-07 04:06] LABS: AMPHETAMINE SCREEN,URINE NEGATIVE (NEGATIVE); BENZODIAZEPINES SCREEN, URINE NEGATIVE (NEGATIVE); COCAINE SCREEN URINE NEGATIVE (NEGATIVE); METHADONE SCREEN, URINE NEGATIVE (NEGATIVE); METHAMPHETAMINES SCREEN, URINE NEGATIVE (NEGATIVE); OPIATE SCREEN, URINE NEGATIVE (NEGATIVE); OXYCODONE SCREEN, URINE NEGATIVE (NEGATIVE); PROPOXYPHENE SCREEN, URINE NEGATIVE (NEGATIVE); TRICYCLIC ANTIDEPRESSANT,URINE NEGATIVE (NEGATIVE)
[2018-03-07 04:11] LABS: BASOPHILS # (AUTO) 0.1 10^3/uL (0.0-0.1); BASOPHILS % (AUTO) 0.6 %; EOSINOPHILS # (AUTO) 0.2 10^3/uL (0.0-0.7); EOSINOPHILS % (AUTO) 1.3 %; HGB - HEMOGLOBIN 14.1 g/dL (12.0-16.0); LYMPHOCYTES # (AUTO) 3.8 10^3/uL (1.5-3.5); LYMPHOCYTES % (AUTO) 30.5 %; MEAN CORPUSCULAR HGB CONC 32.9 g/dL (32.0-36.0); MEAN CORPUSCULAR VOLUME 88.2 fL (81.0-99.0); MEAN PLATELET VOLUME 7.3 fL (7.9-10.8); MONOCYTES # (AUTO) 1.3 10^3/uL (0.0-1.0); MONOCYTES % (AUTO) 10.4 %; NEUTROPHILS # (AUTO) 7.1 10^3/uL (1.5-6.6); NEUTROPHILS % (AUTO) 57.2 %; PLT - PLATELET COUNT 318 10^3/uL (130-450); RED BLOOD COUNT 4.85 10^6/uL (4.20-5.40); RED CELL DISTRIBUTION WIDTH 13.6 % (12.0-15.0); WHITE BLOOD COUNT 12.5 x10^3/uL (4.8-10.8)
[2018-03-07 04:25] LABS: ALBUMIN 4.3 g/dL (3.2-5.5); ALBUMIN/GLOBULIN RATIO 1.1 (1.0-2.2); ALKALINE PHOSPHATASE 82 IU/L (42-121); ALT ALANINE AMINOTRANSFERASE 17 IU/L (10-60); AST ASPARTATE AMINOTRANSFERASE 16 IU/L (10-42); BILIRUBIN,TOTAL < 0.2 mg/dL (0.2-1.0); BUN - BLOOD UREA NITROGEN 6 mg/dL (6-20); CALCIUM 9.7 mg/dL (8.5-10.3); CARBON DIOXIDE - CO2 25 mmol/L (21-32); CHLORIDE 100 mmol/L (101-111); CREATININE 0.6 mg/dL (0.4-1.0); GFR - MDRD 123 (>89); GLUCOSE 96 mg/dL (70-100); LIPASE 12 U/L (22-51); SALICYLATE < 6.0 mg/dL; SODIUM 136 mmol/L (135-145); TOTAL PROTEIN 8.2 g/dL (6.7-8.2)
[2018-03-07 04:26] LABS: ACETAMINOPHEN < 10 ug/mL (10-30)
[2018-03-07] MEDS ORDERED: ACETAMINOPHEN 325 MG TABLET PO STA (06:13)
--- NOTE | 2018-03-07 07:43 | ED Physician Documentation ---
History of Present Illness - Stated complaint Stated Complaint: PANIC ATTACK - Chief complaint Chief Complaint: MHE PD PAST MEDICAL HISTORY - Past Medical History Past Medical History: Yes Cardiovascular: None Respiratory: None Endocrine/Autoimmune: None GI: None : None HEENT: None Psych: Depression, Anxiety, Other Musculoskeletal: None Derm: None - Past Surgical History Past Surgical History: No - Present Medications Home Medications: Ambulatory Orders Medication Instructions Recorded Confirmed Cyclobenzaprine [Flexeril] 10 mg PO TID PRN #20 tablet 02/02/18 HYDROcod/ACETAM 5/325 [[place] 5/325] 1 - 2 ea PO Q6H PRN #15 tablet 02/02/18 Aripiprazole [Abilify] 10 mg PO DAILY #30 tablet 03/07/18 FLUoxetine [PROzac] 20 mg PO DAILY #30 capsule 03/07/18 - Allergies Allergies/Adverse Reactions: Allergies Allergy/AdvReac Type Severity Reaction Status Date / Time Penicillins Allergy Rash Verified 03/07/18 03:57 - Social History Does the pt smoke?: Yes Smoking Status: Current every day smoker Does the pt drink ETOH?: Yes Does the pt have substance abuse?: No - Immunizations Immunizations are current?: Yes - POLST Patient has POLST: No Results - Vitals Vitals: Vital Signs - 24 hr 03/07/18 03/07/18 03/07/18 03:53 04:47 05:30 Temperature 36.6 C Heart Rate 92 Respiratory 16 16 17 Rate Blood Pressure 141/91 H O2 Saturation 100 03/07/18 06:13 Temperature Heart Rate 74 Respiratory 16 Rate Blood Pressure 124/86 H O2 Saturation 99 Oxygen O2 Source Room air - Labs Labs: Laboratory Tests 03/07/18 03/07/18 03/07/18 03:40 03:40 04:05 WBC 12.5 H RBC 4.85 Hgb 14.1 Hct 42.8 MCV 88.2 MCH 29.0 MCHC 32.9 RDW 13.6 Plt Count 318 MPV 7.3 L Neut # 7.1 H Lymph # 3.8 H [place] # 1.3 H Eos # 0.2 Baso # 0.1 Absolute Nucleated RBC 0.01 Nucleated RBC % 0.0 Sodium Potassium Chloride Carbon Dioxide Anion Gap BUN Creatinine Estimated GFR (MDRD) Glucose Calcium Total Bilirubin AST ALT Alkaline Phosphatase Total Protein Albumin Globulin Albumin/Globulin Ratio Lipase Urine Color YELLOW Urine Clarity CLEAR Urine pH 6.0 Ur Specific [place] 1.015 Urine Protein NEGATIVE Urine Glucose (UA) NEGATIVE Urine Ketones NEGATIVE Urine Occult Blood MODERATE H Urine Nitrite NEGATIVE Urine Bilirubin NEGATIVE Urine Urobilinogen 0.2 (NORMAL) Ur Leukocyte Esterase NEGATIVE Urine RBC 6-10 H Urine WBC 0-3 Ur Squamous Epith Cells MANY Squamous H Urine Bacteria Rare Ur Microscopic Review INDICATED Urine Culture Comments NOT INDICATED Urine HCG, Qual NEGATIVE Salicylates Urine Opiates Screen NEGATIVE Ur Oxycodone Screen NEGATIVE Urine Methadone Screen NEGATIVE Ur Propoxyphene Screen NEGATIVE Acetaminophen Ur Barbiturates Screen NEGATIVE Ur Tricyclics Screen NEGATIVE Ur Phencyclidine Scrn NEGATIVE Ur Amphetamine Screen NEGATIVE U Methamphetamines Scrn NEGATIVE U Benzodiazepines Scrn NEGATIVE Urine Cocaine Screen NEGATIVE U Cannabinoids Screen POSITIVE H Ethyl Alcohol 03/07/18 04:05 WBC RBC Hgb Hct MCV MCH MCHC RDW Plt Count MPV Neut # Lymph # [place] # Eos # Baso # Absolute Nucleated RBC Nucleated RBC % Sodium 136 Potassium 3.5 Chloride 100 L Carbon Dioxide 25 Anion Gap 11.0 BUN 6 Creatinine 0.6 Estimated GFR (MDRD) 123 Glucose 96 Calcium 9.7 Total Bilirubin < 0.2 L AST 16 ALT 17 Alkaline Phosphatase 82 Total Protein 8.2 Albumin 4.3 Globulin 3.9 Albumin/Globulin Ratio 1.1 Lipase 12 L Urine Color Urine Clarity Urine pH Ur Specific [place] Urine Protein Urine Glucose (UA) Urine Ketones Urine Occult Blood Urine Nitrite Urine Bilirubin Urine Urobilinogen Ur Leukocyte Esterase Urine RBC Urine WBC Ur Squamous Epith Cells Urine Bacteria Ur Microscopic Review Urine Culture Comments Urine HCG, Qual Salicylates < 6.0 Urine Opiates Screen Ur Oxycodone Screen Urine Methadone Screen Ur Propoxyphene Screen Acetaminophen < 10 L Ur Barbiturates Screen Ur Tricyclics Screen Ur Phencyclidine Scrn Ur Amphetamine Screen U Methamphetamines Scrn U Benzodiazepines Scrn Urine Cocaine Screen U Cannabinoids Screen Ethyl Alcohol < 5.0 PD MEDICAL DECISION MAKING - ED course ED course: assumed care 7 AM 23 f hx schizoaffective disorder used to be on abilify fluoxetine and anti anxiety meds off meds now cant sleep 2/2 tactile visual and auditory hallucinations and delusions of persecution denies SI HI states she cant do inpt care right now but felt she needed somewhere to come and feel safe waiting for avme re meds and outpt follow up no recent pain cough etc A&O X 3 RRR CTAB pt seen by SW see DERRELL consult does not feel pt needs inpt care or is a danger to self or others or gravely disable DERRELL rec is for dc and outpt fup with PMD and [facility] which pt will need to schedule will refill meds except benzo and dc Departure - Departure Disposition: Home, Self Care Clinical Impression: Schizoaffective disorder Qualifiers: Schizoaffective disorder type: depressive Qualified Code(s): F25.1 - Schizoaffective disorder, depressive type Insomnia Qualifiers: Insomnia type: due to other mental disorder Qualified Code(s): F51.05 - Insomnia due to other mental disorder Condition: Stable Instructions: ED Schizo Affective Disorder Follow-Up: Kelly Carvalho ARNP [Provider Admit Priv/Credential] - Prescriptions: Aripiprazole [Abilify] 10 mg PO DAILY #30 tablet FLUoxetine [PROzac] 20 mg PO DAILY #30 capsule Comments: The community mental health social worker feels it is safe for you to go home. I have refilled your Abilify and fluoxetine You need to follow up at [facility] and your PMD - please call to schedule Return if worse Forms: Activity restrictions
[2018-03-07 10:06] VITALS: BP 124/74
== END 2018-03-07 10:20 | disposition home or self-care (01) ==
LOC: EDUNIT# → ED 03:39
DX: F25.1 Schizoaffective disorder, depressive type (principal); F51.05 Insomnia due to other mental disorder; F17.200 Nicotine dependence, unspecified, uncomplicated
CPT/HCPCS: 36415; 80053; 80306; 80307; 80320; 80329; 81001; 81025; 83690; 85025; 99284; A9270; 81003; 87086

== ENCOUNTER 2018-03-14 15:20 | Outpatient (CLI) | payer MEDICAID ==
[2018-03-14 18:27] LABS: BASOPHILS % (AUTO) 0.5 %; EOSINOPHILS % (AUTO) 0.6 %; HGB - HEMOGLOBIN 12.4 g/dL (12.0-16.0); LYMPHOCYTES # (AUTO) 3.7 10^3/uL (1.5-3.5); LYMPHOCYTES % (AUTO) 44.4 %; MEAN CORPUSCULAR HEMOGLOBIN 28.7 pg (27.0-31.0); MEAN CORPUSCULAR HGB CONC 32.6 g/dL (32.0-36.0); MEAN CORPUSCULAR VOLUME 88.3 fL (81.0-99.0); MEAN PLATELET VOLUME 8.4 fL (7.9-10.8); MONOCYTES # (AUTO) 0.6 10^3/uL (0.0-1.0); MONOCYTES % (AUTO) 7.6 %; NEUTROPHILS # (AUTO) 3.9 10^3/uL (1.5-6.6); NEUTROPHILS % (AUTO) 46.9 %; PLT - PLATELET COUNT 316 10^3/uL (130-450); RED CELL DISTRIBUTION WIDTH 13.3 % (12.0-15.0); WHITE BLOOD COUNT 8.3 x10^3/uL (4.8-10.8)
[2018-03-14 18:33] LABS: % IRON SATURATION 15 % (20-50); ALBUMIN 3.9 g/dL (3.2-5.5); ALBUMIN/GLOBULIN RATIO 1.1 (1.0-2.2); ALKALINE PHOSPHATASE 71 IU/L (42-121); ALT ALANINE AMINOTRANSFERASE 11 IU/L (10-60); AST ASPARTATE AMINOTRANSFERASE 14 IU/L (10-42); BILIRUBIN,TOTAL < 0.2 mg/dL (0.2-1.0); BUN - BLOOD UREA NITROGEN 7 mg/dL (6-20); CALCIUM 8.9 mg/dL (8.5-10.3); CARBON DIOXIDE - CO2 24 mmol/L (21-32); CHLORIDE 104 mmol/L (101-111); CREATININE 0.7 mg/dL (0.4-1.0); GFR - MDRD 103 (>89); GLUCOSE 85 mg/dL (70-100); IRON 43 ug/dL (28-170); SODIUM 136 mmol/L (135-145); TOTAL IRON BINDING CAPACITY 283 ug/dL (250-450); TOTAL PROTEIN 7.4 g/dL (6.7-8.2); TRANSFERRIN 202 mg/dL (192-382)
[2018-03-14 18:38] LABS: THYROID STIMULATING HORMONE 1.16 uIU/mL (0.34-5.60)
[2018-03-15 13:42] LABS: HEPATITIS C ANTIBODY NON-REACTIVE (NON-REACTIVE)
[2018-03-15 15:21] LABS: HIV AG/AB 4TH GEN NON-REACTIVE (NON-REACTIVE)
== END 2018-03-14 15:21 | disposition home or self-care (01) ==
LOC: LAB.F 15:20
PROVIDERS: ATTEND Nurse Practitioner Family
DX: D64.9 Anemia, unspecified (principal); Z72.51 High risk heterosexual behavior
CPT/HCPCS: 36415; 80053; 81599; 82607; 83540; 84443; 84466; 85025; 86592; 86803; 87389; 87491; 87591

== ENCOUNTER 2018-11-01 11:32 | Outpatient (CLI) | payer MEDICAID ==
--- NOTE | 2018-11-01 14:26 | XRAY Report ---
Reason: CHRONIC LOW BACK PAIN Procedure Date: 11/01/2018 Accession Number: [id number] / [id number] Procedure: XR - Lumbar Spine 2 View CPT Code: FULL RESULT: EXAM: LUMBOSACRAL SPINE RADIOGRAPHY EXAM DATE: 11/01/2018 11:43 AM. CLINICAL HISTORY: CHronic low back pain. Fracture 4 years ago. No recent fall or injury. COMPARISONS: None. TECHNIQUE: 3 views. FINDINGS: Alignment: Normal. No spondylolisthesis or scoliosis. Bones: Five [id number] lumbar vertebral bodies are present. No fractures or bone lesions. Disks: Normal. Disk heights are maintained. Facets: No degenerative changes. Sacroiliac Joints: Unremarkable. Soft Tissues: Normal. The visualized bowel gas pattern is normal. IMPRESSION: Normal lumbar spine radiography. [facility]
== END 2018-11-01 11:33 | disposition home or self-care (01) ==
LOC: DI 11:32
PROVIDERS: ATTEND Nurse Practitioner Family
DX: M54.5 Low back pain (principal)
CPT/HCPCS: 72100

== ENCOUNTER 2019-01-03 11:19 | Outpatient (CLI) | payer MEDICARE ==
--- NOTE | 2019-01-03 16:25 | XRAY Report ---
Reason: CHRONIC LOW BACK PAIN, PAIN IN THORACIC SPINE Procedure Date: 01/03/2019 Accession Number: [id number] / [id number] Procedure: XR - Thoracic Spine 3 View CPT Code: FULL RESULT: EXAM: THORACIC SPINE RADIOGRAPHY EXAM DATE: 01/03/2019 01:23 PM. CLINICAL HISTORY: CHRONIC LOW BACK PAIN, PAIN IN THORACIC SPINE. COMPARISON: 02/02/2018. TECHNIQUE: 2 views. FINDINGS: Alignment: Mild midthoracic dextroscoliosis. No anterior listhesis or retrolisthesis. Bones: Slight superior T12 endplate compression deformity similar to previous. Disks: Disk heights are maintained. Soft Tissues: The included lungs and cardiomediastinal silhouette are normal. IMPRESSION: Stable thoracic spine compared with 02/02/2018 with particular reference to superior T12 endplate compression deformity and a mild midthoracic dextroscoliosis. No significant new findings. RAD[facility]
== END 2019-01-03 11:20 | disposition home or self-care (01) ==
LOC: DI 11:19
PROVIDERS: ATTEND Nurse Practitioner
DX: M41.84 Other forms of scoliosis, thoracic region (principal); M43.8X4 Other specified deforming dorsopathies, thoracic region; G89.29 Other chronic pain; M54.5 Low back pain
CPT/HCPCS: 72072

== ENCOUNTER 2019-04-18 08:00 | Outpatient (CLI) | payer MEDICARE ==
[2019-04-18 21:48] LABS: TRICHOMONAS VAGINALIS DNA NEGATIVE (NEGATIVE)
== END 2019-04-18 23:59 | disposition home or self-care (01) ==
LOC: LAB.R 08:00
PROVIDERS: ATTEND Registered Nurse
DX: Z11.3 Encounter for screening for infections with a predominantly sexual mode of transmission (principal)
CPT/HCPCS: 87491; 87591; 87661

== ENCOUNTER 2019-05-24 09:07 | Emergency (ER) | payer MEDICARE ==
--- NOTE | 2019-05-24 09:32 | ED Physician Documentation ---
PD HPI ABD PAIN - Stated complaint Stated Complaint: VOMITING/SIDE PX - Chief complaint Chief Complaint: Abd Pain - History obtained from History obtained from: Patient - History of Present Illness Timing - onset: How many hours ago (5), Today (at 4 am) Timing - duration: Hours (5) Timing - details: Abrupt onset, Still present Quality: Cramping, Aching, Pain Location: RUQ, Epigastric Radiation: Upper back. No: Chest Improved by: No: Eating, Vomiting Worsened by: Eating Associated symptoms: Nausea, Vomiting, Other (Denies unusual foods or ingestions or any significant alcohol use last night. Abrupt onset of upper abdominal pain with nausea and vomiting a few times over the last 5 hours.). No: Fever, Hematemesis, Diarrhea, Constipation, Melena Similar symptoms before: Has not had sx before Recently seen: Not recently seen Review of Systems Constitutional: denies: Fever, Chills, Myalgias Nose: denies: Rhinorrhea / runny nose, Congestion Throat: denies: Sore throat Cardiac: denies: Chest pain / pressure Respiratory: denies: Cough GI: reports: Abdominal Pain, Nausea, Vomiting. denies: Abdominal Swelling, Constipation, Diarrhea : denies: Dysuria, Frequency Neurologic: denies: Generalized weakness, Near syncope PD PAST MEDICAL HISTORY - Past Medical History Cardiovascular: None Respiratory: None Endocrine/Autoimmune: None GI: None : None HEENT: None Psych: Depression, Anxiety, Other Musculoskeletal: None Derm: None - Past Surgical History Past Surgical History: No - Present Medications Home Medications: Ambulatory Orders Medication Instructions Recorded Confirmed Famotidine 20 mg PO BID #20 tablet 05/24/19 Hydrocodone/Acetaminophen [[place] 1 each PO Q6H PRN #12 tablet 05/24/19 5-325 Tablet] Promethazine [Phenergan] 25 mg PO Q6H PRN #10 tab 05/24/19 - Allergies Allergies/Adverse Reactions: Allergies Allergy/AdvReac Type Severity Reaction Status Date / Time Penicillins Allergy Rash Verified 05/24/19 09:23 - Social History Does the pt smoke?: Yes Smoking Status: Current every day smoker Does the pt drink ETOH?: Yes Does the pt have substance abuse?: No - Immunizations Immunizations are current?: Yes - POLST Patient has POLST: No PD ED PE NORMAL - Vitals Vital signs reviewed: Yes - General General: Alert and oriented X 3, Well developed/nourished, Other (She appears uncomfortable and is holding her upper abdomen and is hunched over in a standing position.) - HEENT HEENT: Pharynx benign - Neck Neck: Supple, no meningeal sign, No adenopathy - Cardiac Cardiac: RRR, No murmur - Respiratory Respiratory: Clear bilaterally - Abdomen Abdomen: Soft, Non distended, No organomegaly, Other (Tender in the epigastric to right upper quadrant area with some local guarding and percussion tenderness. There is no rebound tenderness and no referred tenderness. The lower abdomen is not tender. There is no CVA tenderness.). No: Normal bowel sounds (diminished) - Female Female : Deferred - Rectal Rectal: Deferred - Back Back: No CVA TTP - Derm Derm: Normal color, Warm and dry - Neuro Neuro: Alert and oriented X 3, No motor deficit, Normal speech Results - Vitals Vitals: Vital Signs - 24 hr 05/24/19 05/24/19 09:21 12:12 Temperature 36.6 C Heart Rate 73 63 Respiratory 16 16 Rate Blood Pressure 116/72 108/61 O2 Saturation 97 99 Oxygen O2 Source Room air - Labs Labs: Laboratory Tests 05/24/19 05/24/19 05/24/19 10:01 10:01 11:00 WBC 11.3 H RBC 4.57 Hgb 14.5 Hct 43.3 MCV 94.7 MCH 31.7 H MCHC 33.5 RDW 13.0 Plt Count 274 MPV 9.4 Neut # (Auto) 9.7 H Lymph # (Auto) 1.3 L [place] # (Auto) 0.2 Eos # (Auto) 0.0 Baso # (Auto) 0.1 Absolute Nucleated RBC 0.00 Nucleated RBC % 0.0 Sodium 140 Potassium 3.9 Chloride 103 Carbon Dioxide 23 Anion Gap 14.0 H BUN 8 Creatinine 0.7 Estimated GFR (MDRD) 102 Glucose 87 Calcium 9.4 Total Bilirubin 0.8 AST 17 ALT 14 Alkaline Phosphatase 52 Total Protein 7.7 Albumin 4.3 Globulin 3.4 Albumin/Globulin Ratio 1.3 Lipase 26 Urine Color YELLOW Urine Clarity CLEAR Urine pH 7.0 Ur Specific [place] 1.025 Urine Protein 30 H Urine Glucose (UA) NEGATIVE Urine Ketones >=80 H Urine Occult Blood NEGATIVE Urine Nitrite NEGATIVE Urine Bilirubin NEGATIVE Urine Urobilinogen 1 (NORMAL) Ur Leukocyte Esterase TRACE H Urine RBC 0-5 Urine WBC 0-3 Ur Squamous Epith Cells MOD Squamous H Urine Bacteria Few Urine Mucus Moderate Strands Ur Microscopic Review INDICATED Urine Culture Comments NOT INDICATED Urine HCG, Qual NEGATIVE - Rads (name of study) abd U/S Radiology: Prelim report reviewed (Normal gallbladder and liver without any acute process.), EMP read contemporaneously, See rad report PD MEDICAL DECISION MAKING - ED course Complexity details: reviewed results (normal RUQ U/S), re-evaluated patient (She was improving with IV fluids and medications. She still had some abdominal pain. I was going to give some more pain medicine but she declined and felt able to at home.), considered differential (Consider biliary colic with the location of the pain and tenderness in the right upper quadrant as well. Otherwise could be food poisoning or viral enteritis. Abrupt onset without any preceding symptoms would be less suggestive of ulcer. She does not have any prior history of hyperemesis or cyclic vomiting and she does not really present and that type of extremis.), d/w patient Departure - Departure Disposition: 01 Home, Self Care Clinical Impression: Upper abdominal pain Vomiting Qualifiers: Vomiting type: bilious vomiting Nausea presence: with nausea Qualified Code(s): R11.14 - Bilious vomiting Condition: Stable Record reviewed to determine appropriate education?: Yes Instructions: ED Nausea Vomiting Prescriptions: Famotidine 20 mg PO BID #20 tablet Hydrocodone/Acetaminophen [[place] 5-325 Tablet] 1 each PO Q6H PRN #12 tablet PRN Reason: Pain Promethazine [Phenergan] 25 mg PO Q6H PRN #10 tab PRN Reason: Nausea / Vomiting Comments: Hopefully this is a viral stomach flu or just a food related. These typically last a day and then improve. Your blood tests and ultrasound do not show any signs of acute organ problems such as gallbladder or pancreas. Presume your stomach is irritated with the vomiting and illness and causing the pain. Small frequent fluids and bland food. Promethazine as needed for nausea. Use Tylenol if needed for pain and add hydrocodone if needed for worse pain in the short-term. Use famotidine acid reducing medicine twice daily for a week to reduce stomach acids and allow healing of the irritated stomach. Recheck if not better over the next day or or 2. Return if worsening. Discharge Date/Time: 05/24/19 12:45
[2019-05-24] MEDS ORDERED: SODIUM CHLORIDE 0.9% 1,000 ML IV ONE ×2 (09:53→11:53)
[2019-05-24] MEDS ORDERED: KETOROLAC 15 MG/ML VIAL IVP STA (09:54)
[2019-05-24] MEDS ORDERED: FAMOTIDINE 20 MG/2 ML VIAL IVP STA (09:54)
[2019-05-24] MEDS ORDERED: ONDANSETRON 4 MG/2 ML VIAL IVP STA ×2 (09:54→11:52)
[2019-05-24 10:16] LABS: BASOPHILS # (AUTO) 0.1 10^3/uL (0.0-0.1); BASOPHILS % (AUTO) 0.4 %; HGB - HEMOGLOBIN 14.5 g/dL (12.0-16.0); LYMPHOCYTES # (AUTO) 1.3 10^3/uL (1.5-3.5); LYMPHOCYTES % (AUTO) 11.2 %; MEAN CORPUSCULAR HEMOGLOBIN 31.7 pg (27.0-31.0); MEAN CORPUSCULAR HGB CONC 33.5 g/dL (32.0-36.0); MEAN CORPUSCULAR VOLUME 94.7 fL (81.0-99.0); MEAN PLATELET VOLUME 9.4 fL (7.9-10.8); MONOCYTES # (AUTO) 0.2 10^3/uL (0.0-1.0); NEUTROPHILS # (AUTO) 9.7 10^3/uL (1.5-6.6); PLT - PLATELET COUNT 274 10^3/uL (130-450); RED BLOOD COUNT 4.57 10^6/uL (4.20-5.40); WHITE BLOOD COUNT 11.3 x10^3/uL (4.8-10.8)
[2019-05-24 10:25] LABS: ALBUMIN 4.3 g/dL (3.2-5.5); ALBUMIN/GLOBULIN RATIO 1.3 (1.0-2.2); BILIRUBIN,TOTAL 0.8 mg/dL (0.2-1.0); CALCIUM 9.4 mg/dL (8.5-10.3); CREATININE 0.7 mg/dL (0.4-1.0); TOTAL PROTEIN 7.7 g/dL (6.7-8.2)
--- NOTE | 2019-05-24 11:43 | Ultrasound Report ---
Reason: RUQ pain and vomiting since 4 am, abrupt Procedure Date: 05/24/2019 Accession Number: [id number] / [id number] Procedure: US - Abdomen Limited CPT Code: FULL RESULT: EXAM: ABDOMEN ULTRASOUND LIMITED, RUQ EXAM DATE: 05/24/2019 11:06 AM. CLINICAL HISTORY: RUQ pain and vomiting since 4 am, abrupt. COMPARISON: None. TECHNIQUE: Real-time scanning was performed with static images obtained. FINDINGS: Liver: Mildly coarsened heterogeneous liver parenchyma. No mass or intrahepatic bile duct dilation. There are several echogenic foci without definite posterior acoustic shadowing. Portal triads are mildly prominent and echogenic. Right liver measures 15.3 cm. Main portal vein flow: Hepatopetal. Gallbladder: Normal. No stones, wall thickening, or sonographic Ellis's sign. Biliary System: CBD measures 3 mm. No intrahepatic or extrahepatic ductal dilatation. Pancreas: Normal. Right kidney: 10.6 cm. No hydronephrosis. Abdominal aorta and IVC: Normal. Other: Study limited by bowel gas. IMPRESSION: 1. Normal gallbladder and common bile duct. 2. Liver is mildly heterogeneous. No mass or intrahepatic bile duct dilation. Nonspecific prominence of the portal triads. Correlate for hepatitis symptoms. [facility]
[2019-05-24] MEDS ORDERED: LIDOCAINE VISCOUS 2% 15 ML UDC MM STA (11:52)
[2019-05-24] MEDS ORDERED: MORPHINE 2 MG/ML CARPUJECT IVP STA (11:52)
[2019-05-24] MEDS ORDERED: MAG HYDROX/AL HYDROX/SIMETH 30 ML UDC PO STA (11:52)
[2019-05-24 11:58] LABS: GLUCOSE, URINE (UA) NEGATIVE (NEGATIVE); KETONES,URINE (UA) >=80 mg/dL (NEGATIVE); LEUKOCYTE ESTERASE, URINE TRACE (NEGATIVE); NITRITE,URINE NEGATIVE (NEGATIVE); OCCULT BLOOD,URINE NEGATIVE (NEGATIVE); PROTEIN,URINE 30 mg/dL (NEGATIVE); UROBILINOGEN,URINE 1 (NORMAL) E.U./dL (NORMAL)
[2019-05-24 11:59] LABS: CLARITY,URINE CLEAR (CLEAR)
[2019-05-24 12:02] LABS: BILIRUBIN,URINE NEGATIVE (NEGATIVE); HCG UR QUAL NEGATIVE; ICTOTEST,URINE NEGATIVE
[2019-05-24 12:12] VITALS: BP 108/61
[2019-05-24 12:14] LABS: RBC,URINE 0-5 /HPF (0-5); SQUAMOUS EPITHELIAL CELL,UR MOD Squamous (<= Few)
[2019-05-24 12:15] LABS: BACTERIA,URINE Few /HPF (None Seen); MUCUS,URINE Moderate Strands
== END 2019-05-24 12:45 | disposition home or self-care (01) ==
LOC: ED 09:07
DX: R10.10 Upper abdominal pain, unspecified (principal); R11.14 Bilious vomiting; F17.200 Nicotine dependence, unspecified, uncomplicated
CPT/HCPCS: 36415; 76705; 80053; 81001; 81025; 83690; 85025; 96374; 96376; 99283; A9270; 81003; 87086

== ENCOUNTER 2019-06-15 | Outpatient (CLI) | payer MEDICARE | END 2019-06-15 23:59 | disposition home or self-care (01) | DX: N39.0 Urinary tract infection, site not specified (principal) | CPT/HCPCS: 87077; 87086; 87181 ==

== ENCOUNTER 2019-07-25 14:15 | Outpatient (CLI) | payer MEDICARE, MEDICAID ==
[2019-07-25 21:54] LABS: TRICHOMONAS VAGINALIS DNA POSITIVE (NEGATIVE)
== END 2019-07-25 23:59 | disposition home or self-care (01) ==
LOC: LAB.R 14:15
PROVIDERS: ATTEND Family Medicine
DX: N76.0 Acute vaginitis (principal)
CPT/HCPCS: 87491; 87591; 87661

== ENCOUNTER 2019-07-31 06:48 | Outpatient (CLI) | payer MEDICARE, MEDICAID ==
--- NOTE | 2019-08-01 12:38 | XRAY Report ---
Reason: HIP PAIN, CHRONIC, L KNEE JOINT PAIN Procedure Date: 07/31/2019 Accession Number: [id number] / [id number] Procedure: XRS - Hips 2V BILAT CPT Code: FULL RESULT: EXAM: BILATERAL HIP RADIOGRAPHY EXAM DATE: 07/31/2019 01:35 PM. CLINICAL HISTORY: HIP PAIN, CHRONIC, L KNEE JOINT PAIN. Born breech be a COMPARISON: None. TECHNIQUE: 2 views each. FINDINGS: Bones: Normal. No fractures or bone lesion. Right Hip: Normal. No dislocation. The hip joint space is preserved. Left Hip: Normal. No dislocation. The hip joint space is preserved. Soft Tissues: IUD in place. IMPRESSION: Normal bilateral hip radiography. [facility]
--- NOTE | 2019-08-01 19:24 | XRAY Report ---
Reason: KNEE JOINT PAIN, LEFT M25.562 Procedure Date: 07/31/2019 Accession Number: [id number] / [id number] Procedure: XRS - Knee 3 View LT CPT Code: FULL RESULT: EXAM: LEFT KNEE RADIOGRAPHY EXAM DATE: 07/31/2019 01:35 PM. CLINICAL HISTORY: KNEE JOINT PAIN, LEFT M25. 562. COMPARISON: XR KNEE 4 OR MORE VIEWS 09/20/2009 12:06 AM. TECHNIQUE: 3 views. FINDINGS: Bones: Normal. No fractures or bone lesions. Joints: Normal. No effusion. No subluxations. Soft Tissues: Normal. No soft tissue swelling. IMPRESSION: Normal knee radiography. [facility]
== END 2019-07-31 06:49 | disposition home or self-care (01) ==
LOC: DI.S 06:48
PROVIDERS: ATTEND Family Medicine
DX: M25.562 Pain in left knee (principal); M25.559 Pain in unspecified hip; R26.9 Unspecified abnormalities of gait and mobility
CPT/HCPCS: 73521

== ENCOUNTER 2019-10-12 10:45 | Emergency (ER) | payer MEDICARE, MEDICAID ==
--- NOTE | 2019-10-12 11:39 | ED Physician Documentation ---
PD HPI UPPER EXT INJURY - Stated complaint Stated Complaint: R ELBOW PX - Chief complaint Chief Complaint: Ext Problem - History obtained from History obtained from: Patient - History of Present Illness Location: Right, Elbow Type of injury: Twist (she rolled over in bed, with arm flexed, so had a twisting of the elbow with onset pain laterally associated with feeling of click /pop. Still hurts today.) Where injury occurred: Home Timing - onset: Last night Timing - details: Abrupt onset, Still present Improved by: Rest Worsened by: Moving Associated symptoms: No: Weakness, Numbness, Tingling, Swelling Similar symptoms before: Has not had sx before Recently seen: Not recently seen Review of Systems Constitutional: denies: Fever, Chills Nose: denies: Rhinorrhea / runny nose, Congestion Throat: denies: Sore throat Respiratory: denies: Cough Skin: denies: Rash, Abrasion (s), Laceration (s) Musculoskeletal: reports: Joint pain Neurologic: denies: Focal weakness, Numbness PD PAST MEDICAL HISTORY - Past Medical History Cardiovascular: None Respiratory: None Endocrine/Autoimmune: None GI: None : None HEENT: None Psych: Depression, Anxiety, Other Musculoskeletal: None Derm: None - Past Surgical History Past Surgical History: No - Present Medications Home Medications: Ambulatory Orders Medication Instructions Recorded Confirmed Famotidine 20 mg PO BID #20 tablet 05/24/19 Hydrocodone/Acetaminophen [[place] 1 each PO Q6H PRN #12 tablet 05/24/19 5-325 Tablet] Promethazine [Phenergan] 25 mg PO Q6H PRN #10 tab 05/24/19 - Allergies Allergies/Adverse Reactions: Allergies Allergy/AdvReac Type Severity Reaction Status Date / Time Penicillins Allergy Rash Verified 05/24/19 09:23 - Social History Does the pt smoke?: Yes Smoking Status: Current every day smoker Does the pt drink ETOH?: Yes Does the pt have substance abuse?: No - Immunizations Immunizations are current?: Yes - POLST Patient has POLST: No PD ED PE NORMAL - Vitals Vital signs reviewed: Yes - General General: Alert and oriented X 3, Well developed/nourished, Other (appears uncomfortable with any ROM of the elbow. Holding flexed. No effusion. Not tender at radial head. Has tender lateral epicondyle. ) Results - Vitals Vitals: Vital Signs - 24 hr 10/12/19 12:23 Heart Rate 70 Respiratory 18 Rate Blood Pressure 117/65 O2 Saturation 100 Oxygen O2 Source Room air - Rads (name of study) right elbow Radiology: Prelim report reviewed (no fracture nor effusion.), See rad report PD MEDICAL DECISION MAKING - ED course Complexity details: reviewed results, considered differential, d/w patient Departure - Departure Disposition: 01 Home, Self Care Clinical Impression: Elbow strain Qualifiers: Encounter type: initial encounter Laterality: right Qualified Code(s): S46.911A - Strain of unspecified muscle, fascia and tendon at shoulder and upper arm level, right arm, initial encounter Condition: Stable Record reviewed to determine appropriate education?: Yes Instructions: ED Sprain Elbow Comments: Your x-ray appears normal without any signs of dislocation or fractures. Presume a sprain or injury of ligaments and muscles. This may still be sore for several days even a week or more. Use a sling as needed for comfort with gentle range of motion of the elbow periodically. Use some anti-inflammatories such as ibuprofen or naproxen and to that add Tylenol if needed. Recheck if not all better over a week to week and a half. Discharge Date/Time: 10/12/19 12:24
[2019-10-12] MEDS ORDERED: ACETAMINOPHEN 325 MG TABLET PO STA (12:01)
[2019-10-12] MEDS ORDERED: IBUPROFEN 600 MG TABLET PO STA (12:01)
[2019-10-12 12:25] VITALS: BP 117/65
--- NOTE | 2019-10-12 12:32 | XRAY Report ---
Reason: r elbow pain Procedure Date: 10/12/2019 Accession Number: [id number] / [id number] Procedure: XR - Elbow 3 View RT CPT Code: Final Report FULL RESULT: EXAM: RIGHT ELBOW RADIOGRAPHY EXAM DATE: 10/12/2019 11:55 AM. CLINICAL HISTORY: R elbow pain. Rolled on elbow, heard pop. COMPARISON: None. TECHNIQUE: 3 views. FINDINGS: Bones: Normal. No fractures or bone lesions. Joints: Normal. No effusion. No subluxation. Soft Tissues: Normal. No soft tissue swelling. IMPRESSION: Normal elbow radiography. [facility]
== END 2019-10-12 12:24 | disposition home or self-care (01) ==
LOC: ED 10:45
DX: S46.811A Strain of other muscles, fascia and tendons at shoulder and upper arm level, right arm, initial encounter (principal); X50.1XXA Overexertion from prolonged static or awkward postures, initial encounter; Y92.003 Bedroom of unspecified non-institutional (private) residence as the place of occurrence of the external cause; F17.200 Nicotine dependence, unspecified, uncomplicated
CPT/HCPCS: 73080; 99281; 99283; A9270

== ENCOUNTER 2019-10-29 13:36 | Emergency (ER) | payer MEDICARE, MEDICAID ==
[2019-10-29 13:44] VITALS: BP 128/78
--- NOTE | 2019-10-29 14:21 | XRAY Report ---
Reason: pain, limited ROM Procedure Date: 10/29/2019 Accession Number: [id number] / [id number] Procedure: XR - Shoulder 3 View RT CPT Code: Final Report FULL RESULT: EXAM: RIGHT SHOULDER RADIOGRAPHY EXAM DATE: 10/29/2019 01:50 PM. CLINICAL HISTORY: Pain, limited ROM. COMPARISON: None. TECHNIQUE: 3 views. FINDINGS: Bones: Normal. No fracture or bone lesion. Joints: The glenohumeral and acromioclavicular joints are normal. Soft tissues: The visualized hemithorax is unremarkable. No soft tissue swelling. IMPRESSION: No acute displaced fracture or malalignment. [facility]
--- NOTE | 2019-10-29 14:39 | ED Physician Documentation ---
PD HPI UPPER EXT INJURY - Stated complaint Stated Complaint: COLLAR BONE PX - Chief complaint Chief Complaint: Ext Problem - History obtained from History obtained from: Patient (About 5 days ago she was doing some stretching and felt a pop in the right shoulder and has had severe pain and limited range of motion ever since.) Review of Systems Constitutional: reports: Reviewed and negative Cardiac: reports: Reviewed and negative Respiratory: reports: Reviewed and negative PD PAST MEDICAL HISTORY - Past Medical History Cardiovascular: None Respiratory: None Endocrine/Autoimmune: None GI: None : None HEENT: None Psych: Depression, Anxiety, Other Musculoskeletal: None Derm: None - Past Surgical History Past Surgical History: No - Present Medications Home Medications: Ambulatory Orders Medication Instructions Recorded Confirmed Famotidine 20 mg PO BID #20 tablet 05/24/19 Hydrocodone/Acetaminophen [[place] 1 each PO Q6H PRN #12 tablet 05/24/19 5-325 Tablet] Promethazine [Phenergan] 25 mg PO Q6H PRN #10 tab 05/24/19 Cyclobenzaprine [Flexeril] 10 mg PO TID PRN #20 tablet 10/29/19 Hydrocodone/Acetaminophen 1 - 2 each PO Q6H PRN #14 tablet 10/29/19 [Hydrocodon-Acetaminophen 5-325] - Allergies Allergies/Adverse Reactions: Allergies Allergy/AdvReac Type Severity Reaction Status Date / Time Penicillins Allergy Rash Verified 05/24/19 09:23 - Social History Does the pt smoke?: Yes Smoking Status: Current every day smoker Does the pt drink ETOH?: Yes Does the pt have substance abuse?: No - Immunizations Immunizations are current?: Yes - POLST Patient has POLST: No PD ED PE NORMAL - Vitals Vital signs reviewed: Yes - General General: Alert and oriented X 3, No acute distress - Extremities Extremities: Other (She is unable to abduct at all, she has focal tenderness over the right AC joint without deformity. No other tenderness about the right shoulder or clavicle.) - Neuro Neuro: Alert and oriented X 3, Normal speech Results - Vitals Vitals: Vital Signs - 24 hr 10/29/19 13:40 Temperature 36.9 C Heart Rate 84 Respiratory 18 Rate Blood Pressure 128/78 O2 Saturation 99 Oxygen O2 Source Room air - Rads (name of study) R shoulder XR Radiology: EMP read contemporaneously (NAD) PD MEDICAL DECISION MAKING - ED course ED course: 24-year-old woman with right shoulder pain, the mechanism is insignificant but the rest of the history and physical is consistent with a mild AC separation. Departure - Departure Disposition: 01 Home, Self Care Clinical Impression: Separation of right acromioclavicular joint, type 1 Qualifiers: Encounter type: initial encounter Qualified Code(s): S43.101A - Unspecified dislocation of right acromioclavicular joint, initial encounter Condition: Good Record reviewed to determine appropriate education?: Yes Instructions: ED Sprain AC Joint Follow-Up: [facility] [Provider Group] Prescriptions: Cyclobenzaprine [Flexeril] 10 mg PO TID PRN #20 tablet PRN Reason: Spasms Hydrocodone/Acetaminophen [Hydrocodon-Acetaminophen 5-325] 1 - 2 each PO Q6H PRN #14 tablet PRN Reason: pain Comments: Call your doctor to arrange a follow-up appointment, make the next available appointment. In the interim, return anytime if worse or if new symptoms develop. Discharge Date/Time: 10/29/19 14:40
== END 2019-10-29 14:40 | disposition home or self-care (01) ==
LOC: ED 13:36
DX: S43.101A Unspecified dislocation of right acromioclavicular joint, initial encounter (principal); X50.9XXA Other and unspecified overexertion or strenuous movements or postures, initial encounter; Y93.89 Activity, other specified; F17.200 Nicotine dependence, unspecified, uncomplicated
CPT/HCPCS: 99283

== ENCOUNTER 2019-12-14 16:45 | Outpatient (CLI) | payer MEDICARE, MEDICAID ==
[2019-12-17 21:41] LABS: TRICHOMONAS VAGINALIS DNA NEGATIVE (NEGATIVE)
== END 2019-12-14 23:59 | disposition home or self-care (01) ==
LOC: LAB.R 16:45
PROVIDERS: ATTEND Physician Assistant Medical
DX: Z20.2 Contact with and (suspected) exposure to infections with a predominantly sexual mode of transmission (principal)
CPT/HCPCS: 87491; 87591; 87661